=== PATIENT | male | born 1960 | race Hispanic/Latino ===

== ENCOUNTER 2019-03-21 09:59 | Outpatient (CLI) | payer OTHER ==
--- NOTE | 2019-03-21 10:48 | XRay Report ---
Lumbar spine: Back pain. AP and lateral views demonstrates normal vertebral alignment and vertebral height. Anterior spurs are noted from L2-L5 with posterior spurring at the L4-5 level. There is mild narrowing of the interspaces between L2-3 and L3-4 with moderate narrowing at L4-5 and almost complete loss of height at L5-S1. The apophyseal joints appear generally aligned and preserved. The bones are well-mineralized. Impressions: Multilevel degenerative spondylosis and discogenic narrowing most severe at L4-5 and L5-S1.
== END 2019-03-21 10:00 | disposition home or self-care (01) ==
LOC: XRAY 09:59
PROVIDERS: ATTEND Internal Medicine
DX: Z02.71 Encounter for disability determination (principal); M47.817 Spondylosis without myelopathy or radiculopathy, lumbosacral region; M48.07 Spinal stenosis, lumbosacral region
CPT/HCPCS: 72100